=== PATIENT | female | born 1985 | race American Indian/Alaskan Native ===

== ENCOUNTER 2017-04-10 19:26 | Emergency (ER) | payer SELFPAY ==
[2017-04-10 19:47] VITALS: BP 135/94
--- NOTE | 2017-04-10 20:26 | XRay Report ---
FINAL REPORT EXAM: XR CHEST ROUTINE 2V HISTORY: COUGH / CHEST HURTS TECHNIQUE: PA and lateral chest radiographs PRIORS: None. FINDINGS: Lung volumes are diminished. There is a focus of increased density seen in the PA projection over the right upper lobe. Left lung appears clear. No pleural effusion is seen. Heart size is within normal limits. No acute osseous abnormality is identified. IMPRESSION: 1. Focus of increased density is seen over the right upper lobe. This could represent early infiltrate. Other parenchymal lesion is not excluded. There are currently no studies available for direct comparison. A follow-up chest radiograph can be performed to assess for stability or resolution. This can be further assessed with CT if indicated.
[2017-04-10] MEDS ORDERED: XYLOCAINE 1% MPF 5 mL INFILTRATI ONE (20:34)
[2017-04-10] MEDS ORDERED: DECADRON IM ONE (20:34)
[2017-04-10] MEDS ORDERED: ROCEPHIN IM ONE (20:34)
--- NOTE | 2017-04-10 21:16 | Emergency Department Report ---
- General Chief Complaint: Upper Respiratory Infection Stated Complaint: DIFFICULTY IN BREATHING Time Seen by Provider: 04/10/17 20:20 Source: patient Mode of arrival: Ambulatory Limitations: No Limitations - History of Present Illness Initial Comments: She comes into the ER today with complaints of cough, shortness of breath, chest pain, body aches, fatigue for the past 5 days. Patient states that she has been having some wheezing that she states that her bones ache. Patient further notes that she has had pneumonia in the past and thinks that this feels the same. Patient has been taking [id number] medications for symptomatic relief without any success. MD Complaint: fever, cough -: days(s) (5) Severity: moderate Consistency: constant Improves With: nothing Worsens With: deep breaths Associated Symptoms: fever, chills, myalgias, cough, chest pain, shortness of breath. denies: diaphoresis, headache, rhinorrhea, nasal congestion, sore throat, abdominal pain, vomiting, diarrhea, dysuria Treatments Prior to Arrival: none - Related Data Previous Rx's Medication Instructions Recorded Last Taken Type Levofloxacin [Levaquin TAB] 500 mg PO QDAY #10 tablet 04/10/17 Unknown Rx traMADol [Ultram] 50 mg PO Q4HR PRN #30 tablet 04/10/17 Unknown Rx Allergies Allergy/AdvReac Type Severity Reaction Status Date / Time No Known Allergies Allergy Verified 04/10/17 19:42 ED Review of Systems ROS: Stated complaint: DIFFICULTY IN BREATHING Other details as noted in HPI Constitutional: chills, fever, weakness Eyes: denies: eye pain, eye discharge, vision change ENT: denies: ear pain, throat pain Respiratory: cough, wheezing. denies: shortness of breath Cardiovascular: chest pain. denies: palpitations Endocrine: no symptoms reported Gastrointestinal: denies: abdominal pain, nausea, diarrhea Genitourinary: denies: urgency, dysuria, discharge Musculoskeletal: denies: back pain, joint swelling, arthralgia Skin: denies: rash, lesions Neurological: denies: headache, weakness, paresthesias Psychiatric: denies: anxiety, depression Hematological/Lymphatic: denies: easy bleeding, easy bruising ED Past Medical Hx - Past Medical History Previous Medical History?: Yes Additional medical history: PNEUMONIA / BRONCHITIS - Surgical History Past Surgical History?: Yes Additional Surgical History: C SECTION X 2 - Social History Smoking Status: Current Every Day Smoker Substance Use Type: None - Medications Home Medications: Home Medications Medication Instructions Recorded Confirmed Last Taken Type Levofloxacin [Levaquin TAB] 500 mg PO QDAY #10 tablet 04/10/17 Unknown Rx traMADol [Ultram] 50 mg PO Q4HR PRN #30 tablet 04/10/17 Unknown Rx ED Physical Exam - General Limitations: No Limitations General appearance: alert, in no apparent distress - Head Head exam: Present: atraumatic, normocephalic - Eye Eye exam: Present: normal appearance - ENT ENT exam: Present: normal exam, normal orophraynx, mucous membranes moist, TM's normal bilaterally, normal external ear exam - Neck Neck exam: Present: normal inspection - Respiratory Respiratory exam: Present: normal lung sounds bilaterally, rales (right upper lobe), rhonchi (diffuse rhonchi throughout breath sounds). Absent: respiratory distress, wheezes, chest wall tenderness, accessory muscle use, decreased breath sounds - Cardiovascular Cardiovascular Exam: Present: regular rate, normal rhythm. Absent: systolic murmur, diastolic murmur, rubs, gallop - GI/Abdominal GI/Abdominal exam: Present: soft, normal bowel sounds - Extremities Exam Extremities exam: Present: normal inspection - Back Exam Back exam: Present: normal inspection - Neurological Exam Neurological exam: Present: alert, oriented X3 - Psychiatric Psychiatric exam: Present: normal affect, normal mood - Skin Skin exam: Present: warm, dry, intact, normal color. Absent: rash ED Course Vital Signs 04/10/17 19:43 Temperature 98.4 F Pulse Rate 80 Respiratory 18 Rate Blood Pressure 135/94 O2 Sat by Pulse 97 Oximetry ED Medical Decision Making - EKG Data -: EKG Interpreted by Me EKG shows normal: sinus rhythm Rate: normal (77 bpm) - EKG Data Interpretation: no acute changes, normal EKG 04/10/17 21:15 No Q waves noted, inverted T waves noted in aVR and V1 leads - Radiology Data Radiology results: report reviewed, image reviewed interpreted by me: Right upper lobe haziness consistent with early pneumonitis Right upper lobe infiltrate - Medical Decision Making Patient is nontoxic and hemodynamically stable. X-ray results reviewed and discussed with patient room. Patient has negative EKG in the ER today. Patient was given intramuscular Rocephin and intramuscular Decadron here in the ER. I'll continue patient on some outpatient Levaquin as well as pain medications for symptomatic relief. Encouraged patient to be sedentary for the next few days and she is to follow-up with her primary care to ensure resolution of illness. Patient is stable for discharge and in agreement with treatment plan. Critical care attestation.: If time is entered above; I have spent that time in minutes in the direct care of this critically ill patient, excluding procedure time. ED Disposition Clinical Impression: Pneumonia Disposition: DISCHARGED TO HOME OR SELFCARE Is pt being admited?: No Does the pt Need Aspirin: No Condition: Stable Instructions: Community-acquired Pneumonia (ED) Prescriptions: Levofloxacin [Levaquin TAB] 500 mg PO QDAY #10 tablet traMADol [Ultram] 50 mg PO Q4HR PRN #30 tablet PRN Reason: Pain Referrals: PRIMARY CARE, [Primary Care Provider] - 3-5 Days Forms: Work/School Release Form(ED) Time of Disposition: 21:19
== END 2017-04-10 21:25 | disposition home or self-care (01) ==
LOC: ED 19:26
DX: J18.9 Pneumonia, unspecified organism (principal); F17.200 Nicotine dependence, unspecified, uncomplicated
CPT/HCPCS: 71020; 93005; 93010; 96372; 99283; J0696; J1100